=== PATIENT | male | born 1945 | race Caucasian/White ===

== ENCOUNTER 2017-07-30 11:54 | Inpatient (IN) | payer MEDICAID, MEDICARE, OTHER ==
[2017-07-30] VITALS (24 sets, daily range): BP systolic 70–171; BP diastolic 22–70
[~2017-07-30] VITALS: Ht 177.8 cm; Wt 88.5 kg
--- NOTE | 2017-07-30 12:00 | NUR ---
Pt is unable to provide any information about home medications.
--- NOTE | 2017-07-30 12:08 | NUR ---
BIB RA 83 FOR FALL, MILD FEVER AND RIGHT SHOULDER PAIN. I PLACED HIM ON A MONITOR AND OBSERVED AN ABNORMAL HEART RHYTHM. I IMMEDIATLEY CALLED DR WANG WHO CAME TO BEDSIDE AND WE PERFORMED A 12 LEAD EKG. PATIENT IS AWAKE AND ALERT. DOES NOT COMPLAIN OF CHEST PAIN OR SOB. HE C/O RIGHT ARM PAIN BECAUSE HE STATERS HE FELL. IV PLACED RIGHT AWAY.
[2017-07-30] MEDS ORDERED: ONDANSETRON 4 MG/2 ML VIAL ONE (12:22)
[2017-07-30] MEDS ORDERED: MORPHINE SULFATE 4 MG/1 ML DISP.SYRIN ONE ×3 (12:22→20:30)
[2017-07-30] MEDS ORDERED: ACETAMINOPHEN ES 500 MG TABLET ONE (12:27)
[2017-07-30] MEDS ORDERED: MORPHINE SULFATE 4 MG/1 ML DISP.SYRIN IV ONE ×2 (12:30→14:00)
[2017-07-30] MEDS ORDERED: ACETAMINOPHEN ES 500 MG TABLET PO ONE (12:30)
[2017-07-30] MEDS ORDERED: ONDANSETRON 4 MG/2 ML VIAL IV ONE (12:30)
[2017-07-30] MEDS ORDERED: IV NORMAL SALINE 1000 ML BAG IV ONE (12:30)
--- NOTE | 2017-07-30 12:35 | NUR ---
PACER PADS PLACED ON CHEST JUST IN CASE. PT IS AWAKE AND ALERT. 2 MORE IV'S PLACED. PATIENT STATES HE HAS A PACEMAKER AND DEFIBRILATOR.
[2017-07-30] MEDS ORDERED: AMIODARONE HCL 150 MG/3 ML VIAL IV ONE (12:38)
--- NOTE | 2017-07-30 12:39 | NUR ---
PER MD, PATIENT IS BEING SHOCKED BY HIS DEFIBRILLATOR. HE IS HAVING RUNS OF V-TACH THEN BEING SHOCKED. DR WANG AT BEDSIDE AND OBSERVED THIS.
[2017-07-30] MEDS ORDERED: AMIODARONE HCL IV 900 MG in IV DEXTROSE 5% 482 ML IV PRN (12:45)
[2017-07-30] MEDS ORDERED: AMIODARONE HCL IV 150 MG in IV DEXTROSE 5% 100 ML IV ONE ×2 (12:45→13:30)
[2017-07-30 12:57] LABS: BASOPHILS % (AUTO) 0.4 % (0.0-2.0); HEMATOCRIT 31.6 % (36.7-47.1); HEMOGLOBIN 10.5 g/dL (12.5-16.3); LYMPHOCYTES # (AUTO) 0.8 K/uL (20.0-40.0); LYMPHOCYTES % (AUTO) 8.1 % (20.5-51.5); MEAN CORPUSCULAR HEMOGLOBIN 34.3 uug (23.8-33.4); MEAN CORPUSCULAR HGB CONC 33 g/dL (32.5-36.3); MEAN CORPUSCULAR VOLUME 103.4 fL (73.0-96.2); MONOCYTES # (AUTO) 0.5 K/uL (2.0-10.0); MONOCYTES % (AUTO) 5.2 % (0.0-11.0); NEUTROPHILS # (AUTO) 8.8 K/uL (1.8-8.9); NEUTROPHILS % (AUTO) 86.3 % (38.5-71.5); PLATELET COUNT (AUTO) 96 K/uL (152-348); RED BLOOD CELL COUNT(AUTO) 3.06 MIL/uL (4.06-5.63); WHITE BLOOD COUNT (AUTO) 10.2 K/uL (3.6-10.2)
--- NOTE | 2017-07-30 13:02 | NUR ---
AMIODERONE BOLUS BEING PREPARED FOR ADMINISTRATION. PT IS AWAKE AND ALERT.
[2017-07-30] MEDS ORDERED: PIPERACILLIN SODIUM/TAZOBACTAM 3.375 G in IV DEXTROSE 5% 50 ML IV ONE (13:15)
[2017-07-30 13:17] LABS: BILIRUBIN,DIRECT 0.5 mg/dL (0.0-0.2); TOTAL PROTEIN, SERUM 7.7 g/dL (6.4-8.2)
[2017-07-30] MEDS ORDERED: ASPIRIN 81 MG TAB.CHEW ONE (13:23)
[2017-07-30] MEDS ORDERED: MAGNESIUM SULFATE/D5W 100 ML IV SCH (13:30)
[2017-07-30] MEDS ORDERED: PHENYLEPHRINE IV 40 MG in IV DEXTROSE 5% 250 ML IV PRN ×2 (13:30→16:15)
[2017-07-30] MEDS ORDERED: ASPIRIN 81 MG TAB.CHEW PO ONE ×2 (13:30)
--- NOTE | 2017-07-30 13:35 | NUR ---
AMIODERONE BOLUS WAS GIVEN. THEN I STARTED THE AMIODRONE DRIP BUT DR WANG ORDERED AN ADDITIONAL BOLUS SO I STOPPED THE DRIP (PER DR WANG), GAVE THE SECOND BOLUS THEN I RESTARTED THE DRIP AT 1345 AFTER THE SECOND BOLUS. THESE ARE APPROXIMATE TIMES.
[2017-07-30 13:39] LABS: CREATININE 4.5 mg/dL (0.6-1.3)
[2017-07-30 13:49] LABS: POTASSIUM 2.5 mmol/L (3.5-5.1)
--- NOTE | 2017-07-30 13:59 | NUR ---
Pt nephew at bedside who stated he will go to pt's house and get information about his current medications.
[2017-07-30] MEDS ORDERED: POTASSIUM CHLORIDE 20 MEQ TAB.PRT.SR PO ONE (14:00)
[2017-07-30] MEDS ORDERED: POTASSIUM CHLORIDE 50 ML IV SCH ×2 (14:00)
[2017-07-30] MEDS ORDERED: POTASSIUM CHLORIDE 50 ML ONE (14:08)
[2017-07-30 14:10] LABS: MAGNESIUM 2.8 mg/dL (1.8-2.4)
[2017-07-30] MEDS ORDERED: MAGNESIUM SULFATE/D5W 100 ML ONE (14:19)
--- NOTE | 2017-07-30 14:35 | NUR ---
PATIENT HAS 5 IV'S. HAS A 20G IN RIGHT HAND, 20 G IN LEFT AC, 20 G IN LEFT FA, 18 G IN RIGHT AC. MULTIPLE MEDS GOING ORDERED/DOCUMENTED. PATIENT IS AWAKE AND ALWER. STILL HAS PAIN IN RIGHT ARM AND PAIN FROM SHOCKS FROM HIS OWN DEFIBRILATOR. DR WANG AWARE. ATTEMPT TO RAISE BP TO GIVE MORPHINE.
[2017-07-30 14:47] LABS: BAND % (MANUAL) 3 % (0-10); LYMPHOCYTES % (MANUAL) 13 % (20-40); MONOCYTES % (MANUAL) 7 % (2-10); NEUTROPHILS % (MANUAL) 77 % (42-75)
[2017-07-30] MEDS ORDERED: POTASSIUM CHLORIDE 20 MEQ TAB.PRT.SR ONE (14:58)
--- NOTE | 2017-07-30 14:58 | NUR ---
PATIENT AWARE OF PENDING ADMISSION TO ICU. REPORT GIVEN TO JULIA WINTER. NEPHEW AWARE ALSO. PATIENT IS AWAKE BUT SLEEPY. AROUSES EASY AND IS ORIENTED X4.
--- NOTE | 2017-07-30 15:00 | NUR ---
sbar report received from Wero, patient going for CT scan then to CCU4
--- NOTE | 2017-07-30 15:02 | NUR ---
ZOSYN NOT ADMINISTERED. ALOS FIRST BAG OF K (10 MEQ) GIVEN BUT SECOND BAG NOT GIVEN YET BECAUSE PATIET HAD GONE TO CT THEN ICU. I NOTIFID ICU NURSE JULIA ABOUT THIS.
[2017-07-30] MEDS ORDERED: POTASSIUM CHLORIDE 10 MEQ in IV NORMAL SALINE 50 ML IV ONE (15:15)
[2017-07-30] MEDS ORDERED: FERR325T28 PO (16:02)
[2017-07-30] MEDS ORDERED: MAGN400T26 PO (16:02)
[2017-07-30] MEDS ORDERED: ASPI81TA31 PO (16:02)
[2017-07-30] MEDS ORDERED: TAMS-3 PO (16:02)
[2017-07-30] MEDS ORDERED: ALLO100T PO (16:02)
[2017-07-30] MEDS ORDERED: FURO-151 PO (16:02)
[2017-07-30] MEDS ORDERED: POTA10TA15 PO (16:02)
[2017-07-30] MEDS ORDERED: LOSA25TA13 PO (16:02)
[2017-07-30] MEDS ORDERED: LEVO125T8 PO (16:02)
[2017-07-30] MEDS ORDERED: METO5TAB7 PO (16:02)
[2017-07-30] MEDS ORDERED: ATOR80TA PO (16:02)
[2017-07-30] MEDS ORDERED: VADADUSTAT PO (16:02)
[2017-07-30] MEDS ORDERED: CARV3.12 PO (16:02)
[2017-07-30] MEDS: AMIODARONE HCL IV 900 MG in IV DEXTROSE 5% 482 ML IV PRN (16:29)
[2017-07-30] MEDS: PHENYLEPHRINE IV 80 MG in IV DEXTROSE 5% 250 ML IV PRN (16:29)
--- NOTE | 2017-07-30 16:38 | NUR ---
unable to insert leon catheter. Dr Schultz aware. will do bladder scan Addendum: 07/30/17 at 1638 by JULIA HO RN Amended: Links added.
[2017-07-30] MEDS: NOREPINEPHRINE BITARTRATE 16 MG in IV DEXTROSE 5% 500 ML IV PRN (17:16)
[2017-07-30] MEDS ORDERED: VANCOMYCIN IV 1 G in PREMIXED 0 EACH IV ONE (19:08)
[2017-07-30] MEDS ORDERED: MORPHINE SULFATE 2 MG/1 ML DISP.SYRIN IV PRN (19:15)
[2017-07-30] MEDS ORDERED: LEVALBUTEROL HCL NEB 0.63 MG/3 ML NEBU NEB PRN (19:15)
[2017-07-30] MEDS ORDERED: ONDANSETRON 4 MG/2 ML VIAL IV PRN (19:15)
[2017-07-30] MEDS ORDERED: ACETAMINOPHEN 650 MG SUPP.RECT RC PRN (19:15)
--- NOTE | 2017-07-30 19:30 | NUR ---
bladder scan done 713 ml ,called Gamal and DR SHARP consulted .urologist he is coming.
[2017-07-30] MEDS: POTASSIUM CHLORIDE 20 MEQ in IV D5/ 0.9% NACL 1,000 ML IV PRN (19:31)
--- NOTE | 2017-07-30 20:00 | NUR ---
patient on norepinephrine drip at 10 mcg/min .neosynephrine drip at 100 mcg/min ,amiodarone drip at 0.5 mg/hr to titrated to keep sbp >90mm/hg Addendum: 07/31/17 at 0149 by MARA SERRANO RN Amended: Links added.
[2017-07-30] MEDS ORDERED: LIDOCAINE 2% (UROJET) 10 ML JELLY MM PRN (20:15)
[2017-07-30] MEDS ORDERED: FAMOTIDINE. 20 MG/2 ML VIAL IV SCH (21:00)
[2017-07-30] MEDS ORDERED: FAMOTIDINE. 20 MG/2 ML VIAL IV ONE (21:22)
[2017-07-30] MEDS: TAMSULOSIN HCL 0.4 MG CAP.SR.24H PO SCH (21:23)
[2017-07-30] MEDS ORDERED: TAMSULOSIN HCL 0.4 MG CAP.SR.24H ONE (21:23)
--- NOTE | 2017-07-30 21:30 | NUR ---
DR:ARON garcia and assisted ,inserted #16 codet ,obtained 750 ml of yellowish colored urine no sediments . send urine for c/s and urinalysis .
[2017-07-30] MEDS ORDERED: LIDOCAINE 2% (UROJET) 10 ML JELLY MM ONE ×2 (21:43→22:30)
[2017-07-30] MEDS ORDERED: PIPERACILLIN/TAZO 2.25 GM VIAL ONE (21:45)
[2017-07-30] MEDS ORDERED: VANCOMYCIN 1000 MG VIAL ONE (21:47)
--- NOTE | 2017-07-30 22:00 | NUR ---
kept npo except medication . with maintenance ivf of d5 n/s +20 meq kcl at 90 ml/hr Addendum: 07/31/17 at 0153 by MARA SERRANO RN Amended: Links added.
[2017-07-30] MEDS: PIPERACILLIN/TAZOBACTAM/D5W 2.25 G in PREMIXED 1 EACH IV SCH (22:01)
[2017-07-31] VITALS (91 sets, daily range): BP systolic 86–140; BP diastolic 38–75
--- NOTE | 2017-07-31 | NUR ---
morphine prn given q request for right shoulder pain 8 to 10 pain .warm compressed applied xray results negative for fracture . , Addendum: 07/31/17 at 0156 by MARA SERRANO RN Amended: Links added.
[2017-07-31] MEDS: MORPHINE SULFATE 4 MG/1 ML DISP.SYRIN IV PRN ×5 (00:01→21:32)
[2017-07-31 01:25] LABS: *BILIRUBIN,URIN NEGATIVE (NEGATIVE); *BLOOD, URINE 3+ (NEGATIVE); *CLARITY,URINE SLIGHTLY CLOUDY (CLEAR); *COLOR,URINE YELLOW (YELLOW); *KETONES,URINE NEGATIVE (NEGATIVE); *PROTEIN,URINE 1+ (NEGATIVE); *UROBILINOGEN,URINE 0.2 E.U./dl (NORMAL); LEUKOCYTE ESTERASE ,URINE NEGATIVE (NEGATIVE); NITRITE, URINE NEGATIVE (NEGATIVE); PH,URINE 5.5 (5.0-8.0); UGLUCOSE NEGATIVE (NEGATIVE)
[2017-07-31 01:37] LABS: BACTERIA,URINE NONE SEEN /HPF (NONE SEEN); MUCUS,URINE FEW /LPF (0-FEW); SQUAMOUS EPITHELIAL CELL,UR FEW /HPF (NONE SEEN); URINE AMORPHOUS URATE MODERATE /HPF; WBC,URINE 0-3 /HPF (0-3)
--- NOTE | 2017-07-31 02:02 | NUR ---
tolerating 02 nasal cannula at4l/min . no sob ,no respiratory distress Addendum: 07/31/17 at 0203 by MARA SERRANO RN Amended: Links added.
[2017-07-31] MEDS: PHENYLEPHRINE IV 80 MG in IV DEXTROSE 5% 250 ML IV PRN (02:47)
[2017-07-31 05:22] LABS: BASOPHILS % (AUTO) 0.3 % (0.0-2.0); HEMATOCRIT 33.5 % (36.7-47.1); HEMOGLOBIN 10.9 g/dL (12.5-16.3); LYMPHOCYTES # (AUTO) 1.1 K/uL (20.0-40.0); LYMPHOCYTES % (AUTO) 8.2 % (20.5-51.5); MEAN CORPUSCULAR HGB CONC 32 g/dL (32.5-36.3); MEAN CORPUSCULAR VOLUME 104.7 fL (73.0-96.2); MONOCYTES # (AUTO) 0.7 K/uL (2.0-10.0); MONOCYTES % (AUTO) 5.3 % (0.0-11.0); NEUTROPHILS # (AUTO) 12.1 K/uL (1.8-8.9); NEUTROPHILS % (AUTO) 86.2 % (38.5-71.5); PLATELET COUNT (AUTO) 81 K/uL (152-348)
[2017-07-31] MEDS: PIPERACILLIN/TAZOBACTAM/D5W 2.25 G in PREMIXED 1 EACH IV SCH ×2 (05:38→14:53)
[2017-07-31 05:40] LABS: BILIRUBIN,TOTAL 1.1 mg/dL (0.2-1.0); CREATININE 4.2 mg/dL (0.6-1.3); MAGNESIUM 2.6 mg/dL (1.8-2.4); PHOSPHOROUS 3.7 mg/dL (2.5-4.9); POTASSIUM 3.1 mmol/L (3.5-5.1); TOTAL PROTEIN, SERUM 7.1 g/dL (6.4-8.2)
[2017-07-31 06:11] LABS: BAND % (MANUAL) 12 % (0-10); LYMPHOCYTES % (MANUAL) 7 % (20-40); MONOCYTES % (MANUAL) 3 % (2-10); NEUTROPHILS % (MANUAL) 78 % (42-75)
--- NOTE | 2017-07-31 07:00 | NUR ---
CALLED [facility] AND SPOKED TO SERVICE ABOUT PATIENT LABS AND BLOOD CULTURE RESULTS . AWAITING FOR CALL BACK .
[2017-07-31] MEDS ORDERED: ALBUTEROL SULFATE 1.25 MG/3 ML NEBU NEB PRN (07:15)
[2017-07-31] MEDS ORDERED: POTASSIUM CHLORIDE 20 MEQ TAB.PRT.SR PO ONE (07:30)
--- NOTE | 2017-07-31 07:30 | NUR ---
Pt received awake,alert.C/o pain at Right shoulder.Ice applied.Paced rhythm on monitor.Remains on Amiodorone gtt at 0.5 mg/min.On Neosenephrine gtt at 40mcg/min,Levophed at 10 mcg/min.Will continue to monitor.
--- NOTE | 2017-07-31 07:32 | NUR ---
CALLED DR: MARYANN NOTIFIED.PATIENT HAD A RUN OF PVCS 10 IN A ROW ,[place] . ASYMPTOMATIC .V/S WNL . ON AMIODARONE DRIP.NORSYNEPHRINE AND NOREPINEPHRINE DRIP DRIP SEE FLOW SHEET OF THE DRIP RATE . DICTATED TO MD PATIENT LABS POTASSIUM LOW 3.1L, ,TROPONIN ELEVATED,WITH ORDERS TO GIVE POTASSIUM PO REPLACEMENT . PER MD WOLF HE IS COMING TO SEE PATIENT .
[2017-07-31] MEDS: LEVOTHYROXINE SODIUM 125 MCG TABLET PO SCH (09:09)
[2017-07-31] MEDS: ASPIRIN 81 MG TAB.CHEW PO SCH (09:10)
--- NOTE | 2017-07-31 10:00 | NUR ---
called,updated on pt condition.
--- NOTE | 2017-07-31 13:10 | NUR ---
Seen,examined by .
[2017-07-31] MEDS: AMIODARONE HCL IV 900 MG in IV DEXTROSE 5% 482 ML IV PRN (13:22)
--- NOTE | 2017-07-31 13:30 | NUR ---
Seen,examined by .
--- NOTE | 2017-07-31 14:23 | NUR ---
Clinical Pharmacy Note: Vancomycin Dosing per Pharmacy Subjective: Vancomycin IV to start in this 71 y/o gentle man for indication of "suspected infxn" Objective: BUN 103/Scr 4.2 (not on HD) WBC 14 Temperature 98.2 ht 177 cm wt 89 kg vanco random: pending 170 today Assessment/Plan: 1gm vanco given in ER 07/30 at 1900. Due to impaired renal function, will dose per random level for now. Random level due today at 1700. Will check level at that time and redose as needed. Will follow Addendum: 07/31/17 at 1928 by JOON THOMASON ADM Vanco random level @ 17: 30 was 5.2. Will administer another dose of vancomycin 1500 mg x 1 . RX to ck scr tomorrow and order level accordingly. will continue to follow up
[2017-07-31] MEDS: SOD FERRIC GLUC COMPLX/SUCROSE 125 MG in IV NORMAL SALINE 100 ML IV SCH (14:54)
[2017-07-31] MEDS: POTASSIUM CHLORIDE 20 MEQ in IV D5/ 0.9% NACL 1,000 ML IV PRN (17:17)
--- NOTE | 2017-07-31 18:00 | NUR ---
Neosenephrine is off.Remains on Levophed at 8mcg/min,Amiodorone gtt at 0.5 mg/min.Still with some bleeding around leon catheter.Will continue to monitor.
[2017-07-31] MEDS ORDERED: VANCOMYCIN IV 1,500 MG in IV NORMAL SALINE 500 ML IV SCH (19:30)
--- NOTE | 2017-07-31 19:30 | NUR ---
Patient is resting in bed. A/O x 2, inattentive and easily distracted. Complains of pain to right shoulder and chest related to cough but denies need for PRN medication at this timee. States that discomfort is tolerable. Will continue to monitor. V-paced on monitor. BP WNL with Levophed gtt at 8 mcg/min. Amiodarone gtt running as ordered. 2L nasal cannula with productive coughing. Almendarez cath intact and draining. SBAR report received from Heather Ogden RN. Will continue plan of care.
--- NOTE | 2017-07-31 19:45 | NUR ---
Elliott, [employer] at bedside for assessment. Updates given.
[2017-07-31] MEDS: NOREPINEPHRINE BITARTRATE 16 MG in IV DEXTROSE 5% 500 ML IV PRN (20:13)
[2017-07-31] MEDS: FAMOTIDINE. 20 MG/2 ML VIAL IV SCH (20:42)
[2017-07-31] MEDS: TAMSULOSIN HCL 0.4 MG CAP.SR.24H PO SCH (20:42)
[2017-07-31] MEDS: ATORVASTATIN 40 MG TABLET PO SCH ×2 (20:43)
[2017-07-31] MEDS: GUAIFENESIN/CODEINE 5 ML LIQUID UDC PO PRN (20:43)
[2017-07-31] MEDS: ACETAMINOPHEN 325 MG TABLET PO PRN (20:43)
[2017-07-31] MEDS ORDERED: CEFEPIME HCL 1 G in IV DEXTROSE 5% 50 ML IV SCH (20:45)
[2017-07-31] MEDS ORDERED: CEFEPIME HCL 1 G VIAL ONE (21:55)
[2017-07-31] MEDS: LINEZOLID IV 600 MG in PREMIXED 1 EACH IV SCH (23:19)
[2017-08-01] VITALS (68 sets, daily range): BP systolic 84–170; BP diastolic 40–79
[2017-08-01] MEDS: MORPHINE SULFATE 4 MG/1 ML DISP.SYRIN IV PRN ×3 (02:00→20:05)
[2017-08-01 05:11] LABS: BASOPHILS % (AUTO) 0.3 % (0.0-2.0); EOSINOPHILS # (AUTO) 0.1 K/uL (0.0-0.7); EOSINOPHILS % (AUTO) 1.1 % (0.0-7.0); HEMATOCRIT 28.9 % (36.7-47.1); HEMOGLOBIN 9.6 g/dL (12.5-16.3); LYMPHOCYTES # (AUTO) 0.8 K/uL (20.0-40.0); LYMPHOCYTES % (AUTO) 9.5 % (20.5-51.5); MEAN CORPUSCULAR HEMOGLOBIN 34.7 uug (23.8-33.4); MEAN CORPUSCULAR HGB CONC 33 g/dL (32.5-36.3); MEAN CORPUSCULAR VOLUME 103.8 fL (73.0-96.2); MONOCYTES # (AUTO) 0.8 K/uL (2.0-10.0); MONOCYTES % (AUTO) 9.9 % (0.0-11.0); NEUTROPHILS # (AUTO) 6.6 K/uL (1.8-8.9); NEUTROPHILS % (AUTO) 79.2 % (38.5-71.5); PLATELET COUNT (AUTO) 57 K/uL (152-348); RED BLOOD CELL COUNT(AUTO) 2.78 MIL/uL (4.06-5.63); WHITE BLOOD COUNT (AUTO) 8.4 K/uL (3.6-10.2)
[2017-08-01 05:28] LABS: BILIRUBIN,TOTAL 0.8 mg/dL (0.2-1.0); CREATININE 4.4 mg/dL (0.6-1.3); MAGNESIUM 2.5 mg/dL (1.8-2.4); PHOSPHOROUS 4.8 mg/dL (2.5-4.9); POTASSIUM 3.7 mmol/L (3.5-5.1); TOTAL PROTEIN, SERUM 6.3 g/dL (6.4-8.2)
[2017-08-01 05:58] LABS: BAND % (MANUAL) 5 % (0-10); BASOPHILS % (MANUAL) 4 % (0-2); LYMPHOCYTES % (MANUAL) 12 % (20-40); MONOCYTES % (MANUAL) 9 % (2-10); NEUTROPHILS % (MANUAL) 70 % (42-75)
[2017-08-01] MEDS: POTASSIUM CHLORIDE 20 MEQ in IV D5/ 0.9% NACL 1,000 ML IV PRN (06:09)
[2017-08-01] MEDS: LEVOTHYROXINE SODIUM 125 MCG TABLET PO SCH (07:08)
[2017-08-01] MEDS: FAMOTIDINE. 20 MG/2 ML VIAL IV SCH (07:57)
[2017-08-01] MEDS: ASPIRIN 81 MG TAB.CHEW PO SCH (08:00)
[2017-08-01] MEDS: LINEZOLID IV 600 MG in PREMIXED 1 EACH IV SCH ×2 (09:02→20:40)
--- NOTE | 2017-08-01 10:45 | NUR ---
Dr. Best here to see pt. Full report given. New orders received.
--- NOTE | 2017-08-01 11:17 | NUR ---
Dr. Tyler here to see pt. Full report given. No new orders received.
[2017-08-01] MEDS: AMIODARONE HCL 200 MG TABLET PO SCH ×2 (11:42→21:14)
[2017-08-01] MEDS ORDERED: POTASSIUM CHLORIDE 20 MEQ POWDER PACKET PO ONE (13:00)
[2017-08-01] MEDS: SOD FERRIC GLUC COMPLX/SUCROSE 125 MG in IV NORMAL SALINE 100 ML IV SCH (13:24)
--- NOTE | 2017-08-01 13:39 | NUR ---
PICC line RN here to see pt for PICC line insertion.
[2017-08-01] MEDS: NOREPINEPHRINE BITARTRATE 16 MG in IV DEXTROSE 5% 500 ML IV PRN (18:47)
--- NOTE | 2017-08-01 19:30 | NUR ---
Report received. Patient AAO but anxious and irritable. On room air. C/o pain R arm and shoulder. Guarding arm and refused to have it touched. On continuous Levophed drip for BP support. With bloody tinged oral secretions. 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 Assessment completed. Addendum: 08/02/17 at 0130 by SHREYA DAMON RN Amended: Links added.
--- NOTE | 2017-08-01 20:00 | NUR ---
Medicated with Morphine IV for pain. Levophed drip titrated down. BPs monitored closely. Needs attended to. Addendum: 08/02/17 at 0132 by SHREYA DAMON RN Amended: Links added. Addendum: 08/02/17 at 0134 by SHREYA DAMON RN Amended: Links added. Addendum: 08/02/17 at 0137 by SHREYA DAMON RN Amended: Links added.
--- NOTE | 2017-08-01 20:15 | NUR ---
Pm care rendered. Ice chips provided and patient advised to have some to decrease oral bleeding. With abrasions noted to R shoulder and back. Photos taken and documented. Addendum: 08/02/17 at 0134 by SHREYA DAMON RN Amended: Links added. Addendum: 08/02/17 at 0137 by SHREYA DAMON RN Amended: Links added.
--- NOTE | 2017-08-01 20:40 | NUR ---
Continue to titrate Levophed drip down.
[2017-08-01] MEDS: TAMSULOSIN HCL 0.4 MG CAP.SR.24H PO SCH (21:14)
[2017-08-01] MEDS: ATORVASTATIN 40 MG TABLET PO SCH (21:14)
--- NOTE | 2017-08-01 21:40 | NUR ---
Still with some R shoulder pain. Tylenol given. Patient watching TV but easily irritated with monitor alarms and patient's noises. Advised appropriately. Addendum: 08/02/17 at 0137 by SHREYA DAMON RN Amended: Links added.
[2017-08-01] MEDS: ACETAMINOPHEN 325 MG TABLET PO PRN (21:41)
[2017-08-01] MEDS ORDERED: CEFEPIME HCL 1 G in IV DEXTROSE 5% 50 ML IV SCH (23:00)
--- NOTE | 2017-08-01 23:00 | NUR ---
Maria G best dc'd. BPs stable. Will continue to monitor closely. Addendum: 08/02/17 at 0141 by SHREYA DAMON RN Amended: Links added.
[2017-08-02] VITALS (23 sets, daily range): BP systolic 91–156; BP diastolic 41–82
--- NOTE | 2017-08-02 | NUR ---
Still awake; c/o again of R shoulder pain. Wants to get out of bed and stand up. Patient dangled at side of bed with assist. With small amounts of bleeding around penile orifice. No hematuria. Medicated with Morphine IV. Addendum: 08/02/17 at 0140 by SHREYA DAMON RN Amended: Links added. Addendum: 08/02/17 at 0141 by SHREYA DAMON RN Amended: Links added.
[2017-08-02] MEDS: MORPHINE SULFATE 4 MG/1 ML DISP.SYRIN IV PRN ×2 (00:02→22:03)
--- NOTE | 2017-08-02 01:30 | NUR ---
Sleeping; no acute distress.
[2017-08-02 05:22] LABS: BASOPHILS % (AUTO) 0.4 % (0.0-2.0); EOSINOPHILS # (AUTO) 0.1 K/uL (0.0-0.7); EOSINOPHILS % (AUTO) 1.7 % (0.0-7.0); HEMATOCRIT 27.5 % (36.7-47.1); HEMOGLOBIN 9.3 g/dL (12.5-16.3); LYMPHOCYTES # (AUTO) 0.6 K/uL (20.0-40.0); LYMPHOCYTES % (AUTO) 8.7 % (20.5-51.5); MEAN CORPUSCULAR HEMOGLOBIN 34.9 uug (23.8-33.4); MEAN CORPUSCULAR HGB CONC 34 g/dL (32.5-36.3); MEAN CORPUSCULAR VOLUME 103.1 fL (73.0-96.2); MONOCYTES # (AUTO) 1.1 K/uL (2.0-10.0); MONOCYTES % (AUTO) 15.2 % (0.0-11.0); NEUTROPHILS # (AUTO) 5.3 K/uL (1.8-8.9); PLATELET COUNT (AUTO) 55 K/uL (152-348); RED BLOOD CELL COUNT(AUTO) 2.67 MIL/uL (4.06-5.63); WHITE BLOOD COUNT (AUTO) 7.1 K/uL (3.6-10.2)
[2017-08-02 05:33] LABS: MAGNESIUM 2.6 mg/dL (1.8-2.4); PHOSPHOROUS 4.9 mg/dL (2.5-4.9)
[2017-08-02 06:06] LABS: BAND % (MANUAL) 3 % (0-10); EOSINOPHILS % (MANUAL) 1 % (0-8); LYMPHOCYTES % (MANUAL) 15 % (20-40); MONOCYTES % (MANUAL) 12 % (2-10); NEUTROPHILS % (MANUAL) 69 % (42-75)
[2017-08-02] MEDS: LEVOTHYROXINE SODIUM 125 MCG TABLET PO SCH (06:33)
--- NOTE | 2017-08-02 07:00 | NUR ---
BPs stable off Levophed drip. NAD noted. Still with pink tinged oral secretions.
[2017-08-02] MEDS: AMIODARONE HCL 200 MG TABLET PO SCH ×2 (08:28→20:44)
[2017-08-02] MEDS: LINEZOLID IV 600 MG in PREMIXED 1 EACH IV SCH (08:29)
[2017-08-02] MEDS: ASPIRIN 81 MG TAB.CHEW PO SCH (08:30)
[2017-08-02] MEDS ORDERED: FAMOTIDINE. 20 MG/2 ML VIAL IV SCH (09:00)
--- NOTE | 2017-08-02 09:00 | NUR ---
Aspirin held in light of low platelet count 53L and excess bleeding noted in the mouth and gums.
--- NOTE | 2017-08-02 09:05 | NUR ---
Dr. Wesley here to see pt. Full report given. New orders received. aware of pt's right shoulder pain. Physical therapy to see pt.
--- NOTE | 2017-08-02 10:36 | NUR ---
Physical therapy here to see pt.
--- NOTE | 2017-08-02 15:03 | NUR ---
Dr. Best here to see pt. Full report given. New orders received. Pt to have LILIANE procedure done tomorrow. Nursing resident services supervisor made aware and to be coordinated.
--- NOTE | 2017-08-02 15:25 | NUR ---
Consent for LILIANE procedure signed by the pt. Pt alert and oriented during the signing of the consent and is aware of the procedures to be done as explained by Dr. Best.
[2017-08-02] MEDS ORDERED: FUROSEMIDE 40 MG/4 ML VIAL IV ONE (15:45)
[2017-08-02] MEDS ORDERED: POTASSIUM CHLORIDE 20 MEQ POWDER PACKET PO ONE (15:45)
--- NOTE | 2017-08-02 19:30 | NUR ---
Report received. Patient AA, eating dinner while watching TV. NAD noted. Addendum: 08/02/17 at 2249 by SHREYA DAMON RN Amended: Links added. Addendum: 08/02/17 at 2802 by SHREYA DAMON RN Amended: Links added.
[2017-08-02] MEDS ORDERED: CEFTRIAXONE 1 G in IV DEXTROSE 5% 50 ML IV SCH (20:00)
--- NOTE | 2017-08-02 20:15 | NUR ---
Assisted up in chair. Weak but cautious. Patient talks irrelevantly at times. Asking about the catheter and when told what it is he would say " I know!" Patient oriented to place but forgets events. Bath given; linens changed completely. With bloody discharge around the penile orifice. No hematuria. Addendum: 08/02/17 at 2256 by SHREYA DAMON RN Amended: Links added.
[2017-08-02] MEDS: CEFTRIAXONE 1 G in IV NORMAL SALINE 50 ML IV SCH (20:42)
[2017-08-02] MEDS: ATORVASTATIN 40 MG TABLET PO SCH (20:43)
[2017-08-02] MEDS: TAMSULOSIN HCL 0.4 MG CAP.SR.24H PO SCH (20:44)
[2017-08-02] MEDS: ACETAMINOPHEN 325 MG TABLET PO PRN (20:45)
--- NOTE | 2017-08-02 22:00 | NUR ---
Medicated with Morphine IV for R arm/shoulder pain. Addendum: 08/03/17 at 0357 by SHREYA DAMON RN Amended: Links added. Addendum: 08/03/17 at 035 by SHREYA DAMON RN Amended: Links added.
[2017-08-03] VITALS (16 sets, daily range): BP systolic 93–159; BP diastolic 37–77
--- NOTE | 2017-08-03 | NUR ---
Sleeping after Morphine. VS stable. Addendum: 08/03/17 at 0358 by SHREYA DAMON RN Amended: Links added.
[2017-08-03 05:07] LABS: BASOPHILS % (AUTO) 0.3 % (0.0-2.0); EOSINOPHILS # (AUTO) 0.1 K/uL (0.0-0.7); EOSINOPHILS % (AUTO) 1.5 % (0.0-7.0); HEMATOCRIT 24.7 % (36.7-47.1); HEMOGLOBIN 8.3 g/dL (12.5-16.3); LYMPHOCYTES # (AUTO) 0.6 K/uL (20.0-40.0); LYMPHOCYTES % (AUTO) 8.2 % (20.5-51.5); MEAN CORPUSCULAR HEMOGLOBIN 34.6 uug (23.8-33.4); MEAN CORPUSCULAR HGB CONC 34 g/dL (32.5-36.3); MEAN CORPUSCULAR VOLUME 102.7 fL (73.0-96.2); MONOCYTES % (AUTO) 14.5 % (0.0-11.0); NEUTROPHILS # (AUTO) 5.3 K/uL (1.8-8.9); NEUTROPHILS % (AUTO) 75.5 % (38.5-71.5); PLATELET COUNT (AUTO) 56 K/uL (152-348)
[2017-08-03 05:26] LABS: CREATININE 5.4 mg/dL (0.6-1.3); MAGNESIUM 2.8 mg/dL (1.8-2.4); PHOSPHOROUS 5.2 mg/dL (2.5-4.9); POTASSIUM 3.8 mmol/L (3.5-5.1)
[2017-08-03 06:02] LABS: BAND % (MANUAL) 2 % (0-10); EOSINOPHILS % (MANUAL) 1 % (0-8); LYMPHOCYTES % (MANUAL) 4 % (20-40); MONOCYTES % (MANUAL) 11 % (2-10); NEUTROPHILS % (MANUAL) 82 % (42-75)
[2017-08-03] MEDS: LEVOTHYROXINE SODIUM 125 MCG TABLET PO SCH (06:29)
--- NOTE | 2017-08-03 06:51 | NUR ---
Stable all night. Kept NPO except meds; for LILIANE today. Refused oral care for now; patient wants to sleep more.
--- NOTE | 2017-08-03 07:30 | NUR ---
RECIEVED LYING IN BED, AWAKE AND ALERT BUT CONFUSE. ORIENTED TO HIS NAME. UNCOOPERATIVE. HR 100%AV PACING WITH UNDERLYING AFIB AND OCCASSIONAL PVC. NO C/O CP, NO SOB ON RA. PICC LINE INTACT AND PATENT. NPO FOR THE PROCEEDURE.
[2017-08-03] MEDS: ASPIRIN 81 MG TAB.CHEW PO SCH (09:00)
[2017-08-03] MEDS: AMIODARONE HCL 200 MG TABLET PO SCH ×2 (09:47→20:59)
[2017-08-03] MEDS ORDERED: BENZOCAINE 20% TOPICAL SPRAY 59.2 ML MM ONE (11:30)
--- NOTE | 2017-08-03 12:00 | NUR ---
DR ODONNELL AND ANESTHESIA DR FARIAS IN THE ROOM , ALSO THE ECHO JANE. PT IS ALL PREPARED FOR LILIANE PROCEEDURE. CONSENT IS SIGNED. PT IS GIVEN SEDATION BY ANESTHESIA. PLACED ON O2 MASK AT 6L. LILIANE STARTED BY DR ODONNELL. PT TOLERATING WELL. O2 SAT MAINTAINED AT 98% AND BP IS STABLE. LILIANE ENDED AT 1215, PROCEEDURE SUCCESFUL AND PT IS STABLE.
--- NOTE | 2017-08-03 14:00 | NUR ---
SEEN AND EXAMINED BY DR GRACIA, NO ORDERS. PT STILL SLEEPING.
[2017-08-03] MEDS: BUMETANIDE 1 MG TABLET PO SCH (15:26)
[2017-08-03] MEDS: CARVEDILOL 3.125 MG TABLET PO SCH (17:13)
[2017-08-03] MEDS: MORPHINE SULFATE 4 MG/1 ML DISP.SYRIN IV PRN ×2 (17:14→21:00)
--- NOTE | 2017-08-03 17:30 | NUR ---
PT GETS AGITATED AND IN PAIN ON HIS RIGHT SHOULDER LEVEL8. MEDICATED WITH MORPHINE 1MG SLOW IVP.
--- NOTE | 2017-08-03 18:30 | NUR ---
PT TRANSFERRED TO [facility] 212 VIA BED AND REPORT GIVEN TO DEV RN. CONDITION IS STABLE.
[2017-08-03] MEDS: CEFTRIAXONE 1 G in IV NORMAL SALINE 50 ML IV SCH (20:51)
[2017-08-03] MEDS: ATORVASTATIN 40 MG TABLET PO SCH (20:58)
[2017-08-03] MEDS: TAMSULOSIN HCL 0.4 MG CAP.SR.24H PO SCH (20:59)
[2017-08-04 00:01] VITALS: BP 103/43
[2017-08-04 04:12] VITALS: BP 105/45
[2017-08-04] MEDS: MORPHINE SULFATE 4 MG/1 ML DISP.SYRIN IV PRN ×2 (05:45→23:28)
[2017-08-04] MEDS: LEVOTHYROXINE SODIUM 125 MCG TABLET PO SCH (06:19)
[2017-08-04 06:45] LABS: BASOPHILS % (AUTO) 0.5 % (0.0-2.0); EOSINOPHILS # (AUTO) 0.1 K/uL (0.0-0.7); EOSINOPHILS % (AUTO) 1.5 % (0.0-7.0); HEMOGLOBIN 8.4 g/dL (12.5-16.3); LYMPHOCYTES # (AUTO) 0.6 K/uL (20.0-40.0); LYMPHOCYTES % (AUTO) 9.4 % (20.5-51.5); MEAN CORPUSCULAR HEMOGLOBIN 34.5 uug (23.8-33.4); MEAN CORPUSCULAR HGB CONC 34 g/dL (32.5-36.3); MEAN CORPUSCULAR VOLUME 102.7 fL (73.0-96.2); MONOCYTES # (AUTO) 0.8 K/uL (2.0-10.0); MONOCYTES % (AUTO) 13.6 % (0.0-11.0); NEUTROPHILS # (AUTO) 4.5 K/uL (1.8-8.9); PLATELET COUNT (AUTO) 68 K/uL (152-348); WHITE BLOOD COUNT (AUTO) 6.1 K/uL (3.6-10.2)
[2017-08-04 06:56] LABS: RED BLOOD CELL COUNT(AUTO) 2.43 MIL/uL (4.06-5.63)
[2017-08-04 06:59] LABS: CREATININE 5.5 mg/dL (0.6-1.3); POTASSIUM 3.5 mmol/L (3.5-5.1)
[2017-08-04] MEDS: CARVEDILOL 3.125 MG TABLET PO SCH ×2 (08:00→17:47)
[2017-08-04] MEDS: BUMETANIDE 1 MG TABLET PO SCH (08:11)
[2017-08-04] MEDS: AMIODARONE HCL 200 MG TABLET PO SCH ×2 (08:11→21:04)
[2017-08-04] MEDS: FAMOTIDINE 20 MG TABLET PO SCH (08:12)
[2017-08-04] MEDS: ASPIRIN 81 MG TAB.CHEW PO SCH (08:12)
--- NOTE | 2017-08-04 08:13 | NUR ---
AMIODARONE AND COREG NOT GIVEN HR=58
[2017-08-04] MEDS ORDERED: POTASSIUM CHLORIDE 20 MEQ POWDER PACKET PO ONE (10:00)
--- NOTE | 2017-08-04 10:00 | NUR ---
SEEN BY PT BUT PATIENT REFUSED STILL C/O PAIN RIGHT ARM AND SHOULDER DR BECERRA MADE AWARE. SEE NOTES
[2017-08-04 10:04] LABS: EOSINOPHILS % (MANUAL) 2 % (0-8); LYMPHOCYTES % (MANUAL) 10 % (20-40); MONOCYTES % (MANUAL) 13 % (2-10); NEUTROPHILS % (MANUAL) 75 % (42-75)
--- NOTE | 2017-08-04 11:22 | NUR ---
SEEN BY DR BECERRA SEE NOTES
[2017-08-04 11:39] VITALS: BP 109/47
--- NOTE | 2017-08-04 12:54 | NUR ---
PATIENT VERY AGITATED ANG BELLIGERENT WITH CARE, REFUSING MOST OF THE CARE AND REFUSED TO EAT MD MADE AWARE. AWAITING PSYCH CONSULT
[2017-08-04 16:10] VITALS: BP 149/65
[2017-08-04 20:46] VITALS: BP 125/58
[2017-08-04] MEDS: ATORVASTATIN 40 MG TABLET PO SCH (21:03)
[2017-08-04] MEDS: CEFTRIAXONE 1 G in IV NORMAL SALINE 50 ML IV SCH (21:03)
[2017-08-04] MEDS: TAMSULOSIN HCL 0.4 MG CAP.SR.24H PO SCH (21:03)
[2017-08-04] MEDS: GUAIFENESIN/CODEINE 5 ML LIQUID UDC PO PRN (21:55)
[2017-08-05 01:21] VITALS: BP 93/48
[2017-08-05 04:00] VITALS: BP 96/50
--- NOTE | 2017-08-05 05:47 | NUR ---
PT C/O RIGHT SHOULDER PAIN, WAS ALSO RESTLESS. GIVEN MORPHINE ORDERED. PT SLEEPING AT THIS TIME, IN NO ACUTE SIGNS OF DISTRESS. SAFETY MEASURES MAINTAINED.
[2017-08-05] MEDS: LEVOTHYROXINE SODIUM 125 MCG TABLET PO SCH (06:10)
--- NOTE | 2017-08-05 07:45 | NUR ---
PATIENT CALMED AND ANSWERING QUESTIONS APPROPRIATELY. NO SIGNS OF DISTRESS, C/O SORENESS RIGHT ARM CONTINUE WITH PAIN MANAGEMENT
[2017-08-05] MEDS: BUMETANIDE 1 MG TABLET PO SCH (08:03)
[2017-08-05] MEDS: AMIODARONE HCL 200 MG TABLET PO SCH ×2 (08:03→20:24)
[2017-08-05] MEDS: ASPIRIN 81 MG TAB.CHEW PO SCH (08:03)
[2017-08-05] MEDS: CARVEDILOL 3.125 MG TABLET PO SCH ×2 (08:03→17:41)
[2017-08-05] MEDS: FAMOTIDINE 20 MG TABLET PO SCH (08:03)
--- NOTE | 2017-08-05 08:20 | NUR ---
SEEN BY DR GIBBS WITH ORDERS
[2017-08-05 11:14] VITALS: BP 96/45
--- NOTE | 2017-08-05 12:00 | NUR ---
SEEN BY PT SEE NOTES, NO SS OF DISTRESS. DC PLANNING IN PROGRESS.
[2017-08-05 15:34] VITALS: BP 120/54
--- NOTE | 2017-08-05 16:35 | NUR ---
LESS COMBATIVE DURING THE DAY, APPETITE REMAINS POOR, V-PACED ULR AFIB
--- NOTE | 2017-08-05 18:05 | NUR ---
SEEN BY DR LARSON FOR CONSULT SEE NOTES
[2017-08-05] MEDS: DIVALPROEX 125 MG TABLET.DR PO SCH ×2 (18:09→20:23)
[2017-08-05 20:19] VITALS: BP 109/53
[2017-08-05] MEDS: ATORVASTATIN 40 MG TABLET PO SCH (20:23)
[2017-08-05] MEDS: CEFTRIAXONE 1 G in IV NORMAL SALINE 50 ML IV SCH (20:26)
[2017-08-05] MEDS: TAMSULOSIN HCL 0.4 MG CAP.SR.24H PO SCH (20:31)
--- NOTE | 2017-08-05 23:54 | NUR ---
awake alert and oriented x2-3 with periods of confusion. left upper arm PICC intact flushed and patent. On IVantibiotic given as scheduled. No acute distress noted. kept comfortable. leon catheter intact draining yellow urine. No BM noted this shift. Fall precautions maintained. Needs attended.
[2017-08-06 00:11] VITALS: BP 152/73
[2017-08-06 04:10] VITALS: BP 137/59
[2017-08-06] MEDS: LEVOTHYROXINE SODIUM 125 MCG TABLET PO SCH (06:00)
--- NOTE | 2017-08-06 06:15 | NUR ---
sleeping on and off. little bit calmer. patient been picking up his lips and scratching bleeding noted. advised patient not to pick his lips gets easily annoyed. Mouth cleansed with lukewarm water . will monitor for further bleeding.
[2017-08-06 06:39] LABS: BASOPHILS % (AUTO) 0.4 % (0.0-2.0); EOSINOPHILS # (AUTO) 0.1 K/uL (0.0-0.7); EOSINOPHILS % (AUTO) 1.3 % (0.0-7.0); HEMATOCRIT 25.7 % (36.7-47.1); HEMOGLOBIN 8.5 g/dL (12.5-16.3); LYMPHOCYTES # (AUTO) 0.8 K/uL (20.0-40.0); MEAN CORPUSCULAR HEMOGLOBIN 33.8 uug (23.8-33.4); MEAN CORPUSCULAR HGB CONC 33 g/dL (32.5-36.3); MEAN CORPUSCULAR VOLUME 102.1 fL (73.0-96.2); MONOCYTES # (AUTO) 1.1 K/uL (2.0-10.0); MONOCYTES % (AUTO) 15.1 % (0.0-11.0); NEUTROPHILS % (AUTO) 72.2 % (38.5-71.5); RED BLOOD CELL COUNT(AUTO) 2.52 MIL/uL (4.06-5.63)
[2017-08-06 06:47] LABS: BILIRUBIN,TOTAL 0.6 mg/dL (0.2-1.0); CREATININE 4.9 mg/dL (0.6-1.3); MAGNESIUM 2.8 mg/dL (1.8-2.4); PHOSPHOROUS 4.5 mg/dL (2.5-4.9); POTASSIUM 3.2 mmol/L (3.5-5.1); TOTAL PROTEIN, SERUM 6.4 g/dL (6.4-8.2)
[2017-08-06 07:06] LABS: PLATELET COUNT (AUTO) 102 K/uL (152-348)
[2017-08-06] MEDS: FAMOTIDINE 20 MG TABLET PO SCH (08:29)
[2017-08-06] MEDS: ASPIRIN 81 MG TAB.CHEW PO SCH (08:29)
[2017-08-06] MEDS: DIVALPROEX 125 MG TABLET.DR PO SCH ×3 (08:31→20:01)
[2017-08-06] MEDS: BUMETANIDE 1 MG TABLET PO SCH (08:31)
[2017-08-06] MEDS: AMIODARONE HCL 200 MG TABLET PO SCH ×2 (08:32→20:02)
[2017-08-06] MEDS: GUAIFENESIN/CODEINE 5 ML LIQUID UDC PO PRN (08:35)
[2017-08-06] MEDS: CARVEDILOL 3.125 MG TABLET PO SCH ×2 (08:36→18:10)
[2017-08-06 09:10] LABS: BAND % (MANUAL) 2 % (0-10); EOSINOPHILS % (MANUAL) 3 % (0-8); LYMPHOCYTES % (MANUAL) 10 % (20-40); MONOCYTES % (MANUAL) 14 % (2-10); NEUTROPHILS % (MANUAL) 71 % (42-75)
[2017-08-06] MEDS ORDERED: BISACODYL 10 MG SUPP.RECT RC ONE (09:15)
--- NOTE | 2017-08-06 11:34 | NUR ---
DULCOLAX GIVEN FOR NO BOWEL MOVEMENT SINCE ADMISSION. AWAITING RESULTS.
[2017-08-06 11:35] VITALS: BP 125/49
[2017-08-06 16:10] VITALS: BP 125/32
--- NOTE | 2017-08-06 17:55 | NUR ---
GOOD RESULTS FROM DULCOLAX SUPP. LARGE BOWEL MOVEMENT NOTED
[2017-08-06] MEDS: CEFTRIAXONE 1 G in IV NORMAL SALINE 50 ML IV SCH (20:00)
[2017-08-06] MEDS: ATORVASTATIN 40 MG TABLET PO SCH (20:01)
[2017-08-06] MEDS: TAMSULOSIN HCL 0.4 MG CAP.SR.24H PO SCH (20:01)
[2017-08-06 20:52] VITALS: BP 103/51
[2017-08-07 00:12] VITALS: BP 103/49
[2017-08-07 04:00] VITALS: BP 110/41
[2017-08-07] MEDS: LEVOTHYROXINE SODIUM 125 MCG TABLET PO SCH (06:03)
--- NOTE | 2017-08-07 07:00 | NUR ---
Pt continues to yell and scream throughout the night, seeking attention even after all needs have been met. Reminded patient not to pick at scabs to face or wipe too hard. Cleansed face with washcloth. Had medium bowel movement last night. Denies pain, but states he can't move his right arm. Assisted with repositioning in bed as needed.
--- NOTE | 2017-08-07 07:10 | NUR ---
Received report from material handler 1st shift nurse, patient in bed awake and picking at scabs on lower right lip. Patient appears to be agitated. Oral care provided, and patient was cleaned up . Bed in low position, side rails up x2, bed alarm on.
[2017-08-07] MEDS: ASPIRIN 81 MG TAB.CHEW PO SCH (08:17)
[2017-08-07] MEDS: DIVALPROEX 125 MG TABLET.DR PO SCH ×3 (08:17→20:17)
[2017-08-07] MEDS: BUMETANIDE 1 MG TABLET PO SCH (08:17)
[2017-08-07] MEDS: AMIODARONE HCL 200 MG TABLET PO SCH ×2 (08:17→20:17)
[2017-08-07] MEDS: CARVEDILOL 3.125 MG TABLET PO SCH ×2 (08:17→18:00)
[2017-08-07] MEDS: FAMOTIDINE 20 MG TABLET PO SCH (08:17)
[2017-08-07 11:37] VITALS: BP 113/50
--- NOTE | 2017-08-07 12:32 | NUR ---
Nutrition consult received for "not tolerating diet" Per RN, patient is s/p oral surgery, s/p fall, not eating. Patient reported refusing to eat because he does not like the presentation of the food, denies any difficulty eating. RD attempted to obtain food preferences, but patient refusing to answer, appeared very frustrated and agitated. Offered oral supplements, patient refused. premium note interest calculator clerk will attempt to gather patient food preferences, will accommodate as best as possible. Will conduct full nutrition assessment per nutrition policy. Addendum: 08/07/17 at [address] Amended: Links added.
--- NOTE | 2017-08-07 13:40 | NUR ---
Patient calm and resting in bed.
[2017-08-07 16:15] VITALS: BP 104/42
--- NOTE | 2017-08-07 17:45 | NUR ---
Patient started to become agitated and calling out, non-compliant with care, and continues to pick at facial wound. Linens changed multiple times throughout the day due to blood being wiped on linens by patient. Patient has multiple concerns about the food, and bed discomfort. Dietary notified to help patient pick foods he can tolerate. Patient is currently in bed, bed in low position, side rails up x2, all needs met.
--- NOTE | 2017-08-07 19:30 | NUR ---
Received patient in bed. Noted with a cough. Pt states the air quality is bad, still complaining that we don't have soda for him. Offered ice water and juice but patient refuses. Reminded not to pick scabs at face. Continues to yell out every time someone walks by his room for no apparent reason. Bed locked and in low position with call light within reach.
[2017-08-07 20:10] VITALS: BP 119/41
[2017-08-07] MEDS: CEFTRIAXONE 1 G in IV NORMAL SALINE 50 ML IV SCH (20:16)
[2017-08-07] MEDS: ATORVASTATIN 40 MG TABLET PO SCH (20:17)
[2017-08-07] MEDS: TAMSULOSIN HCL 0.4 MG CAP.SR.24H PO SCH (20:17)
--- NOTE | 2017-08-07 20:24 | NUR ---
Held Cordarone since pulse was 64.
[2017-08-08 00:39] VITALS: BP 115/52
[2017-08-08 04:00] VITALS: BP 120/62
[2017-08-08] MEDS: LEVOTHYROXINE SODIUM 125 MCG TABLET PO SCH (06:08)
--- NOTE | 2017-08-08 06:16 | NUR ---
Pt slept intermittently through the night. Continues to yell each time someone walks past his door and gets agitated at times when staff is trying to attend to his needs. Compliant with taking medications. Denies pain, but states he is uncomfortable because the "air quality is bad" in the building and not having soda on the unit. RT provided a breathing treatment once due to cough.
--- NOTE | 2017-08-08 07:15 | NUR ---
received patient in bed asleep arouses easily denies pain or discomforts at this time tele is paced.on room air with no shortness of breath.picc line intact and patent made comfortable and will continue to observe.
[2017-08-08] MEDS: BUMETANIDE 1 MG TABLET PO SCH (08:27)
[2017-08-08] MEDS: DIVALPROEX 125 MG TABLET.DR PO SCH ×3 (08:27→21:06)
[2017-08-08] MEDS: ASPIRIN 81 MG TAB.CHEW PO SCH (08:27)
[2017-08-08] MEDS: FAMOTIDINE 20 MG TABLET PO SCH (08:27)
[2017-08-08] MEDS: AMIODARONE HCL 200 MG TABLET PO SCH ×2 (08:28→21:06)
[2017-08-08] MEDS: CARVEDILOL 3.125 MG TABLET PO SCH ×2 (08:29→17:18)
[2017-08-08 11:03] VITALS: BP 109/48
--- NOTE | 2017-08-08 14:00 | NUR ---
SEEN BY DR BECERRA WITH NO NEW ORDERS AT THIS TIME.
[2017-08-08 15:19] VITALS: BP 112/64
--- NOTE | 2017-08-08 18:00 | NUR ---
PATIENT SEEN BY DR WOLF WITH ORDER TO DISCONTINUE TELEMETRY AND NOTED.
--- NOTE | 2017-08-08 19:20 | NUR ---
Received patient awake, demanding his 7up in the refrigerator, easily got upset when informed that it is not there. Offered lemon cabazon and agreed. Lips still bleeding in small amount. Denies any pain on affected area at this time. Instructed patient to be gentle in wiping the wound. Continue care as planned.
[2017-08-08 20:00] VITALS: BP 122/65
[2017-08-08] MEDS: CEFTRIAXONE 1 G in IV NORMAL SALINE 50 ML IV SCH (20:12)
--- NOTE | 2017-08-08 20:36 | NUR ---
residential air sealing technician at bedside for EEG as ordered. Addendum: 08/08/17 at 2118 by JACQUI MONTES RN wrong patient.
[2017-08-08] MEDS: ATORVASTATIN 40 MG TABLET PO SCH (21:05)
[2017-08-08] MEDS: TAMSULOSIN HCL 0.4 MG CAP.SR.24H PO SCH (21:06)
[2017-08-09 05:34] VITALS: BP 114/66
[2017-08-09] MEDS: LEVOTHYROXINE SODIUM 125 MCG TABLET PO SCH (05:57)
--- NOTE | 2017-08-09 06:21 | NUR ---
Slept in between care. Very cooperative. Right of mouth scab still with scant bleeding. Good mouth care rendered. All needs attended and met. Continue current plan of care.
--- NOTE | 2017-08-09 07:30 | NUR ---
RECEIVED PATIENT AWAKE ALERT AND ORIENTED DENIES PAIN OR DISCOMFORTS ON ROOM AIR WITH NO SHORTNESS OF BREATH AT THIS TIME.PICC LINE ON HIS LEFT FOREARM REMAINS INTACT FLUSHED PER PROTOCOL RIGHT SIDE OF HIS MOUTH SCAB REMAINS INTACT AT THIS TIME MADE COMFORTABLE AND WILL CONTINUE TO OBSERVE.
[2017-08-09] MEDS: AMIODARONE HCL 200 MG TABLET PO SCH ×2 (08:21→20:04)
[2017-08-09] MEDS: BUMETANIDE 1 MG TABLET PO SCH (08:21)
[2017-08-09] MEDS: CARVEDILOL 3.125 MG TABLET PO SCH ×2 (08:21→17:03)
[2017-08-09] MEDS: ASPIRIN 81 MG TAB.CHEW PO SCH (08:21)
[2017-08-09] MEDS: FAMOTIDINE 20 MG TABLET PO SCH (08:22)
[2017-08-09] MEDS: DIVALPROEX 125 MG TABLET.DR PO SCH ×3 (08:22→20:03)
--- NOTE | 2017-08-09 08:36 | NUR ---
PATIENT SEEN AND EXAMINED BY DR CORDERO WITH NEW ORDERS AND NOTED.
[2017-08-09 09:35] LABS: BASOPHILS # (AUTO) 0.1 K/uL (0.0-8.0); BASOPHILS % (AUTO) 0.6 % (0.0-2.0); EOSINOPHILS # (AUTO) 0.1 K/uL (0.0-0.7); HEMATOCRIT 27.5 % (36.7-47.1); HEMOGLOBIN 9.2 g/dL (12.5-16.3); LYMPHOCYTES # (AUTO) 0.8 K/uL (20.0-40.0); LYMPHOCYTES % (AUTO) 6.7 % (20.5-51.5); MEAN CORPUSCULAR HGB CONC 33 g/dL (32.5-36.3); MEAN CORPUSCULAR VOLUME 101.8 fL (73.0-96.2); MONOCYTES # (AUTO) 0.9 K/uL (2.0-10.0); MONOCYTES % (AUTO) 7.9 % (0.0-11.0); NEUTROPHILS # (AUTO) 9.5 K/uL (1.8-8.9); NEUTROPHILS % (AUTO) 83.8 % (38.5-71.5); PLATELET COUNT (AUTO) 210 K/uL (152-348); WHITE BLOOD COUNT (AUTO) 11.4 K/uL (3.6-10.2)
[2017-08-09 09:52] LABS: BILIRUBIN,TOTAL 0.6 mg/dL (0.2-1.0); MAGNESIUM 2.6 mg/dL (1.8-2.4)
[2017-08-09] MEDS ORDERED: POTASSIUM CHLORIDE 20 MEQ TAB.PRT.SR PO ONE (10:30)
--- NOTE | 2017-08-09 11:30 | NUR ---
PHYSICAL THERAPY HERE TO SEE PATIENT AND HE AMBULATED IN THE HALLWAY WITH ASSISTANCE WITH FAIR ENDURANCE TOLERATED FAIRLY WELL AND BACK TO BED.PATIENT CONTINUE TO PICK ON HIS LIPS NOTED SCANTY AMOUNT OF PINKISH REDDISH FLUIDS DISCOURAGED FROM PICKING ON THE SCABS AT THE RIGHT HAND CORNER OF HIS LIPS AND HE EXPRESSED UNDERSTANDING.
[2017-08-09 11:38] VITALS: BP 117/55
[2017-08-09 15:42] VITALS: BP 114/52
--- NOTE | 2017-08-09 19:25 | NUR ---
PT PRESENT LYING IN BED. AAOX4. DENIES ANY PAIN OR SOB. IN NO ACUTE DISTRESS. PICC LINE INTACT AND PATENT. NEEDS ASSESSED AND MET. SAFETY MEASURE INITIATED AND CALL [facility] WITHIN REACH.
[2017-08-09] MEDS: CEFTRIAXONE 1 G in IV NORMAL SALINE 50 ML IV SCH (19:50)
[2017-08-09] MEDS: ATORVASTATIN 40 MG TABLET PO SCH (20:02)
[2017-08-09] MEDS: TAMSULOSIN HCL 0.4 MG CAP.SR.24H PO SCH (20:03)
[2017-08-09 20:16] VITALS: BP 111/52
[2017-08-10 05:45] VITALS: BP 114/52
[2017-08-10] MEDS: LEVOTHYROXINE SODIUM 125 MCG TABLET PO SCH (06:57)
--- NOTE | 2017-08-10 07:11 | NUR ---
PT NOT SLEEPING LAST NIGHT WATCHING TV, PEELING OFF THE SCAB ON HIS LIP AND BLEED.DENIES ANY PAIN OR DISCOMFORT,REMAINS IN BED, DASILVA IN PLACE,VSS,AFEBRILE,ALL NEEDS ATTENDED.PICC LINE FLUSHES AND DRAWS BLOOD WELL.
--- NOTE | 2017-08-10 07:30 | NUR ---
RECEIVED PATIENT AWAKE ALERT AND ORIENTED DENIES PAIN OR DISCOMFORTS ON ROOM AIR WITH NO SHORTNESS OF BREATH AT THIS TIME.PICC LINE ON HIS LEFT FOREARM REMAINS INTACT FLUSHED PER PROTOCOL RIGHT SIDE OF HIS MOUTH BLEEDING MADE COMFORTABLE AND WILL CONTINUE TO OBSERVE.
[2017-08-10 07:39] LABS: CREATININE 3.6 mg/dL (0.6-1.3); MAGNESIUM 2.5 mg/dL (1.8-2.4); PHOSPHOROUS 3.8 mg/dL (2.5-4.9)
[2017-08-10] MEDS: FAMOTIDINE 20 MG TABLET PO SCH (08:10)
[2017-08-10] MEDS: BUMETANIDE 1 MG TABLET PO SCH (08:10)
[2017-08-10] MEDS: ASPIRIN 81 MG TAB.CHEW PO SCH (08:10)
[2017-08-10] MEDS: DIVALPROEX 125 MG TABLET.DR PO SCH ×2 (08:10→16:07)
[2017-08-10] MEDS: CARVEDILOL 3.125 MG TABLET PO SCH ×2 (08:14→17:09)
[2017-08-10] MEDS: AMIODARONE HCL 200 MG TABLET PO SCH (08:14)
[2017-08-10 08:29] LABS: BASOPHILS % (AUTO) 0.4 % (0.0-2.0); EOSINOPHILS # (AUTO) 0.1 K/uL (0.0-0.7); EOSINOPHILS % (AUTO) 1.1 % (0.0-7.0); HEMOGLOBIN 8.9 g/dL (12.5-16.3); LYMPHOCYTES # (AUTO) 0.9 K/uL (20.0-40.0); LYMPHOCYTES % (AUTO) 9.2 % (20.5-51.5); MEAN CORPUSCULAR HEMOGLOBIN 34.7 uug (23.8-33.4); MEAN CORPUSCULAR HGB CONC 34 g/dL (32.5-36.3); MONOCYTES % (AUTO) 9.6 % (0.0-11.0); NEUTROPHILS # (AUTO) 8.2 K/uL (1.8-8.9); NEUTROPHILS % (AUTO) 79.7 % (38.5-71.5); PLATELET COUNT (AUTO) 210 K/uL (152-348); RED BLOOD CELL COUNT(AUTO) 2.55 MIL/uL (4.06-5.63); WHITE BLOOD COUNT (AUTO) 10.2 K/uL (3.6-10.2)
[2017-08-10 11:22] VITALS: BP 105/53
[2017-08-10] MEDS: ACETAMINOPHEN 325 MG TABLET PO PRN (12:44)
[2017-08-10] MEDS ORDERED: POTASSIUM CHLORIDE 20 MEQ TAB.PRT.SR PO ONE (15:00)
[2017-08-10 15:34] VITALS: BP 104/48
[2017-08-10 17:09] VITALS: BP 104/48
[2017-08-10] MEDS ORDERED: DIVA125T2 PO ×2 (17:14)
[2017-08-10] MEDS ORDERED: ATOR40TA PO (17:14)
[2017-08-10] MEDS ORDERED: CEFT1VIA15 IV (17:14)
[2017-08-10] MEDS ORDERED: ALBU1.25 NEB (17:14)
[2017-08-10] MEDS ORDERED: FOLI0.8T2 PO (17:14)
[2017-08-10] MEDS ORDERED: GUAI5SYR4 PO (17:14)
[2017-08-10] MEDS ORDERED: FAMO20TA8 PO (17:14)
[2017-08-10] MEDS ORDERED: BUME1TAB4 PO (17:14)
[2017-08-10] MEDS ORDERED: ACET325T53 PO (17:14)
[2017-08-10] MEDS ORDERED: AMIO200T6 PO (17:14)
[2017-08-10] MEDS ORDERED: DOCU-141 PO (17:24)
[2017-08-10] MEDS ORDERED: ALLO100T PO (17:24)
[2017-08-10] MEDS ORDERED: POLY17PO4 PO (17:24)
[2017-08-10] MEDS ORDERED: ACID1TAB4 PO (17:24)
--- NOTE | 2017-08-10 20:15 | NUR ---
PATIENT DISCHARGE TO [facility] IN FAIR CONDITION, AM CHERYL GAVE REPORT TO THE [facility] STAFF, TOOK ALL BELONINGS, IN FAIR AND STABLE CONDITION.
== END 2017-08-10 20:18 | DRG 871 ==
LOC: ER 11:56 → CCU 15:59 → TELE 08-03 18:35 → MED 08-08 17:40
PROVIDERS: ADMIT Internal Medicine; ATTEND Internal Medicine
PROC: 0T7D7DZ Dilation of Urethra with Intraluminal Device, Via Natural or Artificial Opening (ICD-10-PCS; 2017-07-30)
PROC: 0T9B70Z Drainage of Bladder with Drainage Device, Via Natural or Artificial Opening (ICD-10-PCS; 2017-07-30)
PROC: 05HY33Z Insertion of Infusion Device into Upper Vein, Percutaneous Approach (ICD-10-PCS; principal; 2017-08-01)
PROC: 4B02XTZ Measurement of Cardiac Defibrillator, External Approach (ICD-10-PCS; 2017-08-03)
PROC: B24CZZ4 Ultrasonography of Pericardium, Transesophageal (ICD-10-PCS; 2017-08-03)
DX: A41.01 Sepsis due to Methicillin susceptible Staphylococcus aureus (principal); G93.41 Metabolic encephalopathy; J69.0 Pneumonitis due to inhalation of food and vomit; N17.0 Acute kidney failure with tubular necrosis; I21.A1 Myocardial infarction type 2; R65.21 Severe sepsis with septic shock; R57.0 Cardiogenic shock; I47.2 Ventricular tachycardia; D68.59 Other primary thrombophilia; E87.1 Hypo-osmolality and hyponatremia; I50.43 Acute on chronic combined systolic (congestive) and diastolic (congestive) heart failure; F32.3 Major depressive disorder, single episode, severe with psychotic features; I13.0 Hypertensive heart and chronic kidney disease with heart failure and stage 1 through stage 4 chronic kidney disease, or unspecified chronic kidney disease; N13.9 Obstructive and reflux uropathy, unspecified; W19.XXXA Unspecified fall, initial encounter; I25.5 Ischemic cardiomyopathy; I25.10 Atherosclerotic heart disease of native coronary artery without angina pectoris; N18.9 Chronic kidney disease, unspecified; E87.6 Hypokalemia; N40.1 Benign prostatic hyperplasia with lower urinary tract symptoms; R33.8 Other retention of urine; F39 Unspecified mood [affective] disorder; Z98.818 Other dental procedure status; Z95.810 Presence of automatic (implantable) cardiac defibrillator; F03.90 Unspecified dementia, unspecified severity, without behavioral disturbance, psychotic disturbance, mood disturbance, and anxiety; E03.9 Hypothyroidism, unspecified; E78.5 Hyperlipidemia, unspecified; Z74.09 Other reduced mobility; I25.2 Old myocardial infarction; D69.6 Thrombocytopenia, unspecified; D53.9 Nutritional anemia, unspecified; I07.1 Rheumatic tricuspid insufficiency; M25.511 Pain in right shoulder; M47.812 Spondylosis without myelopathy or radiculopathy, cervical region; Y93.E1 Activity, personal bathing and showering; Y92.002 Bathroom of unspecified non-institutional (private) residence as the place of occurrence of the external cause; R21 Rash and other nonspecific skin eruption; M50.31 Other cervical disc degeneration, high cervical region
CPT/HCPCS: 36415; 36569; 70030-TC; 70450; 71045; 71250; 72125; 73060; 73090; 83550; 83605; 83735; 84100; 84132; 84443; 85025; 85730; 87040; 87077; 87086; 87400; 92610; 93005; 93307; 94664; 97110; 97116; 97530; A4663; A9150; J0282; J0692; J0696; J1940; J2020; J2270; J2370; J2405; J2543; J2916; J3370; J3475; J3480; J3490; J7030; J7040; J7042; J7050; J7060